=== PATIENT | female | born 1955 | race Caucasian/White ===

== ENCOUNTER 2021-11-15 13:48 | Emergency (ER) | payer MEDICAID, OTHER ==
[~2021-11-15] VITALS: Ht 157.5 cm; Wt 73.0 kg
[2021-11-15 14:58] LABS: EOSINOPHILS % 1.4 % (0.0-5.0); HEMATOCRIT. 39.2 % (36.0-48.0); HEMOGLOBIN. 12.7 g/dL (12.0-16.0); LYMPHOCYTES % 11.6 % (20.0-50.0); MEAN CORPUSCULAR HEMOGLOBIN 27.6 pg (28.0-32.0); MEAN CORPUSCULAR VOLUME 85.1 fL (81.0-99.0); MEAN PLATELET VOLUME 7.9 fl (7.4-10.4); MONOCYTES % 2.9 % (2.0-8.0); NEUTROPHILS % 83.1 % (40.0-76.0); PLATELET 406 x1000/uL (130-400); RED BLOOD CELL COUNT 4.61 mill/uL (4.2-5.4); RED CELL DISTRIBUTION WIDTH 15.7 % (11.6-14.6)
[2021-11-15] MEDS ORDERED: ACETAMINOPHEN 325MG TABLET PO STA (15:04)
[2021-11-15 15:14] LABS: CHLORIDE 105 mEq/L (98-107)
[2021-11-15] MEDS ORDERED: SODIUM CHLORIDE 0.9% 500 ML IV ONE (15:15)
[2021-11-15] MEDS ORDERED: ASPIRIN 325MG EC TABLET PO ONE (17:15)
[2021-11-15 20:14] VITALS: BP 162/61
== END 2021-11-15 20:40 | disposition short-term general hospital (02) ==
LOC: ER 13:48
DX: R42 Dizziness and giddiness (principal); E11.65 Type 2 diabetes mellitus with hyperglycemia; E78.00 Pure hypercholesterolemia, unspecified; I10 Essential (primary) hypertension; Z86.73 Personal history of transient ischemic attack (TIA), and cerebral infarction without residual deficits; Z90.49 Acquired absence of other specified parts of digestive tract; Z98.890 Other specified postprocedural states
CPT/HCPCS: 36415; 70450; 71045; 80053; 82962; 83880; 84484; 85025; 93005; 96360; 99285; J7030